=== PATIENT | female | born 1990 | race Caucasian/White ===

== ENCOUNTER 2016-08-31 23:00 | Emergency (ER) | payer SELFPAY ==
[2016-08-31 23:08] VITALS: PULSE 98; RESP 18; TEMP 97.1
[2016-08-31] MEDS ORDERED: SODIUM CHLORIDE 0.9% 1,000 ML IV STA (23:10)
--- NOTE | 2016-08-31 23:25 | ED ---
Dizziness HPI - General Chief Complaint: Syncope Stated Complaint: syncope Time Seen by Provider: 08/31/16 23:10 Source: patient, RN notes reviewed Mode of arrival: ambulatory Limitations: no limitations - History of Present Illness Initial Comments: Patient is a 25-year-old female with chief complaint of syncope while she was working out today. Patient reports that she had done cardio and then was working at a pressing weight machine when she started to feel slightly lightheaded. Patient reports that she put her head down for approximately a minute. Patient reports that she does have a history of diabetes but is not managing this with any medication. Patient reports that she has a history of anxiety. Patient has a history of syncope. She reports the last time she passed out was approximately month ago. She presents that she is currently on her menstrual cycle. She denies any abdominal pain, nausea or vomiting. She does have a headache at this time. - Related Data Previous Rx's Medication Instructions Recorded Ciprofloxacin HCl [Cipro] 500 mg PO Q12HR #10 tablet 09/01/16 Allergies Allergy/AdvReac Type Severity Reaction Status Date / Time No Known Allergies Allergy Verified 08/31/16 23:08 Review of Systems ROS Statement: Those systems with pertinent positive or pertinent negative responses have been documented in the HPI. ROS Other: All systems not noted in ROS Statement are negative. Past Medical History Past Medical History: Diabetes Mellitus, GERD/Reflux, Seizure Disorder History of Any Multi-Drug Resistant Organisms: None Reported Past Surgical History: No Surgical Hx Reported Past Psychological History: Anxiety Smoking Status: Former smoker Past Alcohol Use History: Occasional Past Drug Use History: None Reported General Exam - General Exam Comments Initial Comments: Well-appearing 25-year-old female. No acute distress. Limitations: no limitations General appearance: alert, in no apparent distress Head exam: Present: atraumatic, normocephalic, normal inspection Eye exam: Present: normal appearance, PERRL, EOMI. Absent: scleral icterus, conjunctival injection, periorbital swelling ENT exam: Present: normal exam, mucous membranes moist Neck exam: Present: normal inspection. Absent: tenderness, meningismus, lymphadenopathy Respiratory exam: Present: normal lung sounds bilaterally. Absent: respiratory distress, wheezes, rales, rhonchi, stridor Cardiovascular Exam: Present: regular rate, normal rhythm, normal heart sounds. Absent: systolic murmur, diastolic murmur, rubs, gallop, clicks GI/Abdominal exam: Present: soft, normal bowel sounds. Absent: distended, tenderness, guarding, rebound, rigid Extremities exam: Present: normal inspection, full ROM, normal capillary refill. Absent: tenderness, pedal edema, joint swelling, calf tenderness Back exam: Present: normal inspection Neurological exam: Present: alert, oriented X3, CN II-XII intact Psychiatric exam: Present: normal affect, normal mood Skin exam: Present: warm, dry, intact, normal color. Absent: rash Course Vital Signs 08/31/16 09/01/16 23:03 02:00 Temperature 97.1 F L Pulse Rate 98 98 Respiratory 18 18 Rate Blood Pressure 133/92 131/78 O2 Sat by Pulse 99 96 Oximetry Medical Decision Making - Medical Decision Making Patient is a 25-year-old female with chief complaint of syncope while she was working out today. Patient reports that she had done cardio and then was working at a pressing weight machine when she started to feel slightly lightheaded. Patient reports that she put her head down for approximately a minute. Patient reports that she does have a history of diabetes but is not managing this with any medication. Patient reports that she has a history of anxiety. Patient has a history of syncope. EKG ws reviewed to be normal. Lab work shows possible UTI with high rare bacteria, and positive nitrates. She denies any abdominal pain, vaginal discharge. Patient given Ciprofloxacin for UTI. Urine culture was obtained. Patient reports that she feels much better after IV fuids and toradol for her headache. Patient plans to follow up with PCP in regards to blood sugar and to start medication for diabetes. Patient understands treatment plan and will comply. - Lab Data Result diagrams: 08/31/16 23:40 08/31/16 23:40 Lab Results 08/31/16 08/31/16 08/31/16 Range/Units 23:40 23:40 23:40 WBC 13.1 H (3.8-10.6) k/uL RBC 5.33 (3.80-5.40) m/uL Hgb 14.3 (11.4-16.0) gm/dL Hct 42.4 (34.0-46.0) % MCV 79.5 L (80.0-100.0) fL MCH 26.8 (25.0-35.0) pg MCHC 33.7 (31.0-37.0) g/dL RDW 13.8 (11.5-15.5) % Plt Count 378 (150-450) k/uL Neutrophils % 71 % Lymphocytes % 20 % Monocytes % 5 % Eosinophils % 1 % Basophils % 1 % Neutrophils # 9.4 H (1.3-7.7) k/uL Lymphocytes # 2.7 (1.0-4.8) k/uL Monocytes # 0.6 (0-1.0) k/uL Eosinophils # 0.1 (0-0.7) k/uL Basophils # 0.1 (0-0.2) k/uL Sodium 140 (137-145) mmol/L Potassium 4.2 (3.5-5.1) mmol/L Chloride 101 (98-107) mmol/L Carbon Dioxide 24 (22-30) mmol/L Anion Gap 15 mmol/L BUN 9 (7-17) mg/dL Creatinine 0.50 L (0.52-1.04) mg/dL Est GFR (MDRD) Af Amer >60 (>60 ml/min/1.73 sqM) Est GFR (MDRD) Non-Af >60 (>60 ml/min/1.73 sqM) Glucose 332 H (74-99) mg/dL Calcium 10.0 (8.4-10.2) mg/dL Total Bilirubin 0.5 (0.2-1.3) mg/dL AST 24 (14-36) U/L ALT 41 (9-52) U/L Alkaline Phosphatase 79 (38-126) U/L Total Protein 8.3 H (6.3-8.2) g/dL Albumin 4.5 (3.5-5.0) g/dL Urine Color Light Yellow Urine Appearance Clear (Clear) Urine pH 6.0 (5.0-8.0) Ur Specific [place] 1.032 (1.001-1.035) Urine Protein 2+ H (Negative) Urine Glucose (UA) 4+ H (Negative) Urine Ketones Trace H (Negative) Urine Blood Moderate H (Negative) Urine Nitrate Positive H (Negative) Urine Bilirubin Negative (Negative) Urine Urobilinogen <2.0 (<2.0) mg/dL Ur Leukocyte Esterase Negative (Negative) Urine RBC 2 (0-5) /hpf Urine WBC 4 (0-5) /hpf Ur Squamous Epith Cells 2 (0-4) /hpf Urine Bacteria Rare H (None) /hpf Urine HCG, Qual (Not Detectd) 08/31/16 Range/Units 23:40 WBC (3.8-10.6) k/uL RBC (3.80-5.40) m/uL Hgb (11.4-16.0) gm/dL Hct (34.0-46.0) % MCV (80.0-100.0) fL MCH (25.0-35.0) pg MCHC (31.0-37.0) g/dL RDW (11.5-15.5) % Plt Count (150-450) k/uL Neutrophils % % Lymphocytes % % Monocytes % % Eosinophils % % Basophils % % Neutrophils # (1.3-7.7) k/uL Lymphocytes # (1.0-4.8) k/uL Monocytes # (0-1.0) k/uL Eosinophils # (0-0.7) k/uL Basophils # (0-0.2) k/uL Sodium (137-145) mmol/L Potassium (3.5-5.1) mmol/L Chloride (98-107) mmol/L Carbon Dioxide (22-30) mmol/L Anion Gap mmol/L BUN (7-17) mg/dL Creatinine (0.52-1.04) mg/dL Est GFR (MDRD) Af Amer (>60 ml/min/1.73 sqM) Est GFR (MDRD) Non-Af (>60 ml/min/1.73 sqM) Glucose (74-99) mg/dL Calcium (8.4-10.2) mg/dL Total Bilirubin (0.2-1.3) mg/dL AST (14-36) U/L ALT (9-52) U/L Alkaline Phosphatase (38-126) U/L Total Protein (6.3-8.2) g/dL Albumin (3.5-5.0) g/dL Urine Color Urine Appearance (Clear) Urine pH (5.0-8.0) Ur Specific [place] (1.001-1.035) Urine Protein (Negative) Urine Glucose (UA) (Negative) Urine Ketones (Negative) Urine Blood (Negative) Urine Nitrate (Negative) Urine Bilirubin (Negative) Urine Urobilinogen (<2.0) mg/dL Ur Leukocyte Esterase (Negative) Urine RBC (0-5) /hpf Urine WBC (0-5) /hpf Ur Squamous Epith Cells (0-4) /hpf Urine Bacteria (None) /hpf Urine HCG, Qual Not Detected (Not Detectd) 08/31/16 23:47 EKG shows normal sinus rhythm. Ventricular rate 100 bpm. [place] interval 132 ms. QRS duration 88 ms. No evidence of ST elevation or T-wave inversion. Disposition Clinical Impression: Syncope, Urinary tract infection, Hyperglycemia Disposition: HOME SELF-CARE Condition: Good Instructions: Diabetic Hyperglycemia (ED), Urinary Tract Infection in Women (ED ), Syncope (ED) Additional Instructions: Patient advised to follow-up with primary care provider in regards to a blood sugar. Return to the emergency department if any alarming signs or symptoms occur. Completely anabiotic prescription. Patient advised to rest, remain hydrated. Prescriptions: Ciprofloxacin HCl [Cipro] 500 mg PO Q12HR #10 tablet Referrals: Dayanara Urias MD [STAFF PHYSICIAN] - 1-2 days Time of Disposition: 01:03
[2016-08-31 23:47] LABS: Basophils # (A) 0.1 k/uL (0-0.2); Basophils % (A) 1 %; CH 27.5; CHCM 34.7; Eosinophils # (A) 0.1 k/uL (0-0.7); Eosinophils % (A) 1 %; HCT 42.4 % (34.0-46.0); HDW 3.19; HGB 14.3 gm/dL (11.4-16.0); Luc # (Auto) 0.26; Luc % (Auto) 2; Lymphocytes # (A) 2.7 k/uL (1.0-4.8); Lymphocytes % (A) 20 %; MCH 26.8 pg (25.0-35.0); MCHC 33.7 g/dL (31.0-37.0); MCV 79.5 fL (80.0-100.0); Monocytes # (A) 0.6 k/uL (0-1.0); Monocytes % (A) 5 %; Neutrophils # (A) 9.4 k/uL (1.3-7.7); Neutrophils % (A) 71 %; RBC 5.33 m/uL (3.80-5.40); RDW 13.8 % (11.5-15.5); WBC 13.1 k/uL (3.8-10.6); WBC (Perox) 12.54
[2016-08-31 23:51] LABS: Appearance,Urine Clear (Clear); Bacteria,Urine Rare /hpf; Bilirubin,Urine Negative (Negative); Glucose,Urine (UA) 4+ (Negative); Ketones,Urine Trace (Negative); Leukocyte Esterase,Urine Negative (Negative); Nitrite,Urine Positive (Negative); Particle Count 25728; Protein,Urine 2+ (Negative); RBC,Urine 2 /hpf (0-5); Specific Gravity,Urine 1.032 (1.001-1.035); Squamous Epithelial Cell,Urine 2 /hpf (0-4); UA Billing (MACRO vs. MICRO) MICRO; Urobilinogen,Urine <2.0 mg/dL (<2.0); WBC,Urine 4 /hpf (0-5)
[2016-09-01 00:04] LABS: ALT 41 U/L (9-52); AST 24 U/L (14-36); Alkaline Phosphatase 79 U/L (38-126); Anion Gap 15 mmol/L; Blood Urea Nitrogen 9 mg/dL (7-17); Carbon Dioxide 24 mmol/L (22-30); Chloride 101 mmol/L (98-107); Glucose 332 mg/dL (74-99); Non-African American GFR(MDRD) >60 (>60 ml/min/1.73 sqM); Potassium 4.2 mmol/L (3.5-5.1); Sodium 140 mmol/L (137-145); Total Bilirubin 0.5 mg/dL (0.2-1.3); Total Protein 8.3 g/dL (6.3-8.2)
[2016-09-01] MEDS ORDERED: KETOROLAC 30 MG/ML 1 ML VIAL IVP STA (00:37)
[2016-09-01] MEDS ORDERED: SODIUM CHLORIDE 0.9% 500 ML IV ONE (00:38)
[2016-09-01 02:02] VITALS: BP 131/78
== END 2016-09-01 02:00 | disposition home or self-care (01) ==
LOC: EC 23:00
DX: N39.0 Urinary tract infection, site not specified (principal); E11.65 Type 2 diabetes mellitus with hyperglycemia; R55 Syncope and collapse; Z87.891 Personal history of nicotine dependence
CPT/HCPCS: 36415; 93005; 80053; 85025; 81001; 81025; 87086; 87077; 87186; 99284; 96374; 96361; 96360; J1885

== ENCOUNTER 2017-03-15 22:45 | Emergency (ER) | payer OTHER ==
[2017-03-15] MEDS ORDERED: ACETAMINOPHEN TAB 500 MG TAB PO STA (23:29)
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
--- NOTE | 2017-03-16 00:49 | US ---
EXAM: US After First Trimester, Transabdominal CLINICAL HISTORY: Reason: Pain TECHNIQUE: Real-time transabdominal obstetrical ultrasound of the maternal pelvis and a second or third trimester with image documentation. COMPARISON: None FINDINGS: Single live intrauterine gestation with cephalic presentation. The placenta is anterior without evidence of previa. The cervix is long and closed, measuring 3.7 cm. Single placental lopez measuring 2 cm. Amniotic fluid index measures 11.5 cm BPD 3.4 cm 16 weeks 4 days HC 12.8 cm 16 weeks 3 days AC 11.2 cm 17 weeks 0 days FL 2.1 cm 16 weeks 2 days By this ultrasound, estimated gestational age is 16 weeks 5 days, corresponding to a sonographic MARKELL of 08/25/2014 which is concordant with prior dating. Estimated weight is 163.87 g +/-24.58 g which is at the 30.1 percentile. HC/AC ratio is 1.14 (normal range for this fetus is 1.07-1.30). FHR is 149 bpm. Detailed evaluation of the anatomy was not performed. Ovaries were not evaluated. IMPRESSION: Single intrauterine with heart rate of 149 bpm. Average ultrasound age of 16 weeks 5 days. No acute abnormality.
[2017-03-16 01:06] LABS: Appearance,Urine Cloudy (Clear); Bacteria,Urine Moderate /hpf; Bilirubin,Urine Negative (Negative); Glucose,Urine (UA) Negative (Negative); Ketones,Urine Trace (Negative); Leukocyte Esterase,Urine Small (Negative); Nitrite,Urine Positive (Negative); Particle Count 77832; Protein,Urine Trace (Negative); Specific Gravity,Urine 1.022 (1.001-1.035); Squamous Epithelial Cell,Urine 4 /hpf (0-4); UA Billing (MACRO vs. MICRO) MICRO; Urobilinogen,Urine <2.0 mg/dL (<2.0); WBC,Urine 5 /hpf (0-5)
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
[2017-03-16 02:48] VITALS: BP 107/56; PULSE 76; RESP 18; TEMP 98.1
== END 2017-03-16 02:48 | disposition home or self-care (01) ==
LOC: EC 22:45
DX: O9A.212 Injury, poisoning and certain other consequences of external causes complicating pregnancy, second trimester (principal); S16.1XXA Strain of muscle, fascia and tendon at neck level, initial encounter; S39.012A Strain of muscle, fascia and tendon of lower back, initial encounter; O24.112 Pre-existing type 2 diabetes mellitus, in pregnancy, second trimester; Z87.891 Personal history of nicotine dependence; Z3A.17 17 weeks gestation of pregnancy; Z79.4 Long term (current) use of insulin; Z79.899 Other long term (current) drug therapy; V43.52XA Car driver injured in collision with other type car in traffic accident, initial encounter; Y92.410 Unspecified street and highway as the place of occurrence of the external cause
CPT/HCPCS: 72040; 72100; 76805; 81001; 99285

== ENCOUNTER 2019-11-22 20:32 | Outpatient (CLI) | payer OTHER ==
[2019-11-22] MEDS ORDERED: LABETALOL 5 MG/ML VIAL MDV IVP PRN ×2 (21:03)
[2019-11-22] MEDS ORDERED: hydrALAZINE HCL 20 MG/ML 1 ML VIAL IVP PRN (21:03)
[2019-11-22 21:13] LABS: Glucose,Whole Blood 126 mg/dL (75-99)
[2019-11-22] MEDS: LACTATED RINGERS 1,000 ML IV SCH ×2 (21:17→22:57)
[2019-11-22 21:29] LABS: Basophils % (A) 0 %; Eosinophils # (A) 0.1 k/uL (0-0.7); Eosinophils % (A) 1 %; HGB 10.9 gm/dL (11.4-16.0); Hypochromasia Slight; Lymphocytes # (A) 2.6 k/uL (1.0-4.8); Lymphocytes % (A) 26 %; MCH 24.2 pg (25.0-35.0); MCHC 32.9 g/dL (31.0-37.0); MCV 73.5 fL (80.0-100.0); Mean Platelet Volume 7.7; Microcytosis Slight; Monocytes # (A) 0.5 k/uL (0-1.0); Monocytes % (A) 5 %; Neutrophils # (A) 6.5 k/uL (1.3-7.7); Neutrophils % (A) 66 %; Platelet Count 259 k/uL (150-450); Poikilocytosis Slight; RBC 4.49 m/uL (3.80-5.40); RDW 15.7 % (11.5-15.5); WBC 9.8 k/uL (3.8-10.6)
[2019-11-22 21:45] LABS: ALT 18 U/L (4-34); AST 31 U/L (14-36); African American GFR (CKD) >90 (>60 ml/min/1.73 sqM); Blood Urea Nitrogen 14 mg/dL (7-17); LDH 557 U/L (313-618); Magnesium 1.7 mg/dL (1.6-2.3); Non-African American GFR(CKD) >90 (>60 ml/min/1.73 sqM); Uric Acid 7.2 mg/dL (3.7-7.4)
[2019-11-22] MEDS: LABETALOL 5 MG/ML VIAL MDV IVP PRN ×3 (22:00→22:40)
[2019-11-22 22:19] LABS: Appearance,Urine Cloudy (Clear); Bacteria,Urine Rare /hpf; Bilirubin,Urine Negative (Negative); Blood,Urine Small (Negative); Color,Urine Yellow; Glucose,Urine (UA) 1+ (Negative); Granular Casts,Urine 2 /lpf (0); Hyaline Casts,Urine 30 /lpf (0-2); Ketones,Urine Negative (Negative); Leukocyte Esterase,Urine Negative (Negative); Mucus,Urine Moderate /hpf; Nitrite,Urine Negative (Negative); PH, Urine 6.5 (5.0-8.0); Protein,Urine 4+ (Negative); RBC,Urine 4 /hpf (0-5); Squamous Epithelial Cell,Urine 11 /hpf (0-4); Urobilinogen,Urine <2.0 mg/dL (<2.0); WBC,Urine 14 /hpf (0-5)
[2019-11-22 22:25] LABS: INR 0.9 (<1.2); Prothrombin Time 9.3 sec (9.0-12.0)
[2019-11-22 22:31] VITALS: RESP 18; TEMP 97.4
[2019-11-22] MEDS ORDERED: CALCIUM GLUCONATE 1 GM/10 ML VIAL IV PRN (22:51)
[2019-11-22] MEDS ORDERED: MAGNESIUM SULFATE-WATER PMX 4 GM in WATER FOR INJECTION 1 100ML.BAG IVPB STA (22:51)
--- NOTE | 2019-11-22 22:58 | XR ---
EXAMINATION TYPE: XR chest 1V portable DATE OF EXAM: 11/22/2019 COMPARISON: NONE HISTORY: Chest pain TECHNIQUE: FINDINGS: Heart and mediastinum are normal. Lungs are clear of consolidation. There is mild coarsenin g of interstitial markings. There are chest leads. There is no pleural effusion. Bony thorax is intac t. IMPRESSION: Slight increased markings. Normal heart.
[2019-11-22] MEDS ORDERED: MAGNESIUM SULFATE-WATER PMX 20 GM in WATER FOR INJECTION 1 500ML.BAG IV SCH (23:00)
[2019-11-22] MEDS ORDERED: BETAMET ACET-BETAMETH SOD PHOS 6 MG/ML MDV IM SCH (23:00)
--- NOTE | 2019-11-22 23:01 | P.HPOB ---
History of Present Illness H&P Date: 11/22/19 Chief Complaint: 26+ weeks, elevated blood pressure, shortness of breath The patient is a 28-year-old 2 para 0101 admitted at 26+ weeks by good dating parameters. She has had all of her care through the [facility] system at the [facility]. She has a known history of pre-gestational type 2 insulin-dependent diabetes for which her blood sugars have been normal by her report. On labor and delivery today her blood sugar is 126. She presented to triage with blood pressures ranging from the 180s into the 200s over 80s to 100s. As result, she had the intravenous labetalol protocol begun which has leveled her pressures to now 150s over 80s to 90s. She does also complain of shortness of breath and a chest x-ray is pending at this time. She denies any symptoms of fever, cough, or any other potential signs of coronavirus. heart tones are nonreactive but are not nonreassuring. She has had one random short-term deceleration. Pulse ox on room air is 98-99%. Laboratory workup to this point has been essentially negative with a hemoglobin and hematocrit of 10.9 and 33.0 respectively. Platelet count is normal at 259,000. Uric acid is significantly elevated at 7.2. LDH is within normal limits at 557. She does have significant proteinuria at 4+. Liver functions are within normal limits. She has mild lower extremity pedal and pretibial edema with normal reflexes. This is potentially a different father of the baby from her previous at which time she had significant hypertension at 36 weeks. Obstetrical history: 2 para 0101 with a previous 36 week delivery secondary to significant hypertensive issues, possible preeclampsia. Her , by the patient's report, has been unremarkable to this point and blood sugars have been within normal limits despite pre-gestational type 2 insulin-dependent diabetes. I have no labs available at this time. Gynecologic history: Unremarkable with no history of any infections to include STDs by the patient's report. Review of Systems Review of systems is confined to history of present illness. Past Medical History Past Medical History: Diabetes Mellitus, GERD/Reflux, Seizure Disorder History of Any Multi-Drug Resistant Organisms: None Reported Past Surgical History: No Surgical Hx Reported Smoking Status: Never smoker Medications and Allergies Home Medications Medication Instructions Recorded Confirmed Type INSULIN ASPART (NovoLOG) [NovoLOG] 16 unit SQ W/BRKFST 03/15/17 11/22/19 History INSULIN ASPART (NovoLOG) [NovoLOG] 20 unit SQ W/SUPPER 03/15/17 11/22/19 History Insulin NPH Human Isophane 46 unit SQ AC-BRKFST 03/15/17 11/22/19 History [NovoLIN N] Insulin NPH Human Isophane 52 unit SQ HS 03/15/17 11/22/19 History [NovoLIN N] Nxz-Tszs-Rjcvo Acid 1 cap PO DAILY 03/15/17 11/22/19 History [-U Capsule (formulary)] Allergies Allergy/AdvReac Type Severity Reaction Status Date / Time No Known Allergies Allergy Verified 11/22/19 20:49 Exam Vital Signs Temp Pulse Resp BP Pulse Ox 11/22/19 21:20 60 18 201/94 11/22/19 21:10 59 L 18 148/79 11/22/19 21:03 97.4 F L 55 L 18 187/98 100 11/22/19 21:01 60 18 173/94 11/22/19 20:49 60 18 176/98 Intake and Output 11/22/19 11/22/19 11/22/19 06:59 14:59 22:59 Other: Weight 75.75 kg In general, this is a well-developed, mildly obese white female in no acute distress though she does appear to be laboring to breathe to some extent. Her heart has a regular rhythm and rate without murmur. Her lungs are clear to auscultation bilaterally in all pickard. Her abdomen is gravid, consistent with gestational age, nondistended, has normal active bowel sounds, is soft, nontender, and without any palpable masses aside from the uterine fundus. Her extremities are without any cyanosis or clubbing though there is trace to 1+ bilateral edema to above the ankle. Digital cervical examination is deferred. Results Result Diagrams: 11/22/19 21:18 11/22/19 21:18 Abnormal Lab Results - Last 24 Hours (Table) 11/22/19 11/22/19 11/22/19 Range/Units 21:11 21:18 21:20 Hgb 10.9 L (11.4-16.0) gm/dL Hct 33.0 L (34.0-46.0) % MCV 73.5 L (80.0-100.0) fL MCH 24.2 L (25.0-35.0) pg RDW 15.7 H (11.5-15.5) % POC Glucose (mg/dL) 126 H (75-99) mg/dL Urine Appearance Cloudy H (Clear) Ur Specific [place] 1.050 H (1.001-1.035) Urine Protein 4+ H (Negative) Urine Glucose (UA) 1+ H (Negative) Urine Blood Small H (Negative) Urine WBC 14 H (0-5) /hpf Ur Squamous Epith Cells 11 H (0-4) /hpf Urine Bacteria Rare H (None) /hpf Hyaline Casts 30 H (0-2) /lpf Urine Mucus Moderate H (None) /hpf Assessment and Plan (1) Hypertensive crisis Current Visit: Yes Status: Acute Code(s): I16.9 - HYPERTENSIVE CRISIS, UNSPECIFIED SNOMED Code(s): 215491941 (2) 26 weeks gestation of Current Visit: Yes Status: Acute Code(s): Z3A.26 - 26 WEEKS GESTATION OF SNOMED Code(s): 77985036 (3) Insulin dependent diabetes mellitus Current Visit: Yes Status: Acute Code(s): WIN1154 - SNOMED Code(s): 36891572 (4) Shortness of breath Current Visit: Yes Status: Acute Code(s): R06.02 - SHORTNESS OF BREATH SNOMED Code(s): 825196089 Plan: As the patient has had all of her previous care at the [facility] and she is far less than 35 weeks of gestation, I have arranged for transfer of her care to [facility]. Her blood pressure joanna ears to be under control at this time following intravenous labetalol. She will be started on magnesium sulfate, 4 g IV bolus followed by 2 g per hour for both seizure prophylaxis and neural protection. She additionally will have her first dose of betamethasone 12.5 mg IM which will likely repeat repeated in 24 hours. IV fluids will continue to run at 100 mL per hour and a Alfonso catheter will be placed for management of fluids. [facility] Arrangements will be made for transfer as soon as possible.
[2019-11-22] MEDS ORDERED: FAMOTIDINE 20 MG/2 ML VIAL IV SCH (23:30)
[2019-11-22] MEDS ORDERED: CITRIC ACID-SODIUM CITRATE 15 ML CUP PO ONE (23:31)
[2019-11-23 00:57] VITALS: BP 143/76; PULSE 75
== END 2019-11-22 23:51 | disposition short-term general hospital (02) ==
LOC: FBPOP 20:32
PROVIDERS: ATTEND Obstetrics & Gynecology
DX: O16.2 Unspecified maternal hypertension, second trimester (principal); Z3A.26 26 weeks gestation of pregnancy; I16.9 Hypertensive crisis, unspecified; R06.02 Shortness of breath; O24.112 Pre-existing type 2 diabetes mellitus, in pregnancy, second trimester; E11.9 Type 2 diabetes mellitus without complications
CPT/HCPCS: 96376; 96361; 96365; 96375; 96372; 82570; 84156; 82565; 83615; 83735; 84450; 84460; 84520; 84550; 85025; 85384; 85610; 85730; 81001; 71045; G0463; J0360; J3475 ×2; J0702; 99215

== ENCOUNTER 2021-03-30 21:29 | Emergency (ER) | payer OTHER ==
[2021-03-30 22:04] VITALS: TEMP 98.5
[2021-03-30] MEDS ORDERED: SODIUM CHLORIDE 0.9% 1,000 ML IV ONE (22:14)
--- NOTE | 2021-03-30 22:15 | ED ---
Female Urogenital HPI - General Chief complaint: Vaginal Bleeding Stated complaint: Cramping(6 weeks ) Time Seen by Provider: 03/30/21 22:14 Source: patient, RN notes reviewed, old records reviewed Mode of arrival: ambulatory Limitations: no limitations - History of Present Illness Initial comments: This is a 30-year-old female to the ER for evaluation today. Patient resents today for vaginal bleeding in . Patient has known of about 6-7 weeks. She has had prior positive test. Patient is also having vaginal cramping with bleeding. She is a . Mild nausea no vomiting no other complaints MD Complaint: vaginal bleeding, other (In ) -: hour(s) Location: suprapubic Radiation: suprapubic Severity: moderate Severity scale (1-10): 5 Quality: cramping Consistency: intermittent Improves with: none Worsens with: none Patient : Yes Associated Symptoms: vaginal bleeding, abdominal pain, nausea/vomiting - Related Data Sexually active: No Home Medications Medication Instructions Recorded Confirmed INSULIN ASPART (NovoLOG) [NovoLOG] 16 unit SQ W/BRKFST 03/15/17 11/22/19 INSULIN ASPART (NovoLOG) [NovoLOG] 20 unit SQ W/SUPPER 03/15/17 11/22/19 Insulin NPH Human Isophane 46 unit SQ AC-BRKFST 03/15/17 11/22/19 [NovoLIN N] Insulin NPH Human Isophane 52 unit SQ HS 03/15/17 11/22/19 [NovoLIN N] Fbz-Eams-Gwttf Acid 1 cap PO DAILY 03/15/17 11/22/19 [-U Capsule (formulary)] Allergies Allergy/AdvReac Type Severity Reaction Status Date / Time No Known Allergies Allergy Verified 11/22/19 20:49 Review of Systems ROS Statement: Those systems with pertinent positive or pertinent negative responses have been documented in the HPI. ROS Other: All systems not noted in ROS Statement are negative. Past Medical History Past Medical History: Diabetes Mellitus, GERD/Reflux, Seizure Disorder History of Any Multi-Drug Resistant Organisms: None Reported Past Surgical History: No Surgical Hx Reported Past Psychological History: Anxiety Smoking Status: Never smoker Past Alcohol Use History: Occasional Past Drug Use History: None Reported General Exam Limitations: no limitations General appearance: alert, in no apparent distress, anxious Head exam: Present: atraumatic, normocephalic, normal inspection Eye exam: Present: normal appearance, PERRL, EOMI. Absent: scleral icterus, conjunctival injection, periorbital swelling ENT exam: Present: normal exam, mucous membranes moist Neck exam: Present: normal inspection. Absent: tenderness, meningismus, lymphadenopathy Respiratory exam: Present: normal lung sounds bilaterally. Absent: respiratory distress, wheezes, rales, rhonchi, stridor Cardiovascular Exam: Present: normal rhythm, tachycardia, normal heart sounds. Absent: systolic murmur, diastolic murmur, rubs, gallop, clicks GI/Abdominal exam: Present: soft, normal bowel sounds. Absent: distended, tenderness, guarding, rebound, rigid Extremities exam: Present: normal inspection, full ROM, normal capillary refill. Absent: tenderness, pedal edema, joint swelling, calf tenderness Back exam: Present: normal inspection Neurological exam: Present: alert, oriented X3, CN II-XII intact Psychiatric exam: Present: normal affect, normal mood Skin exam: Present: warm, dry, intact, normal color. Absent: rash Course Vital Signs 03/30/21 22:01 Temperature 98.5 F Pulse Rate 118 H Respiratory 19 Rate Blood Pressure 133/85 O2 Sat by Pulse 97 Oximetry - Reevaluation(s) Reevaluation #1: 03/30/21 23:08 Medical records reviewed Reevaluation #2: 03/30/21 23:08 Patient is no significant bleeding here in the ER, spotting Reevaluation #3: 03/31/21 01:43 Spoke patient length who is refusing admission, will give continued resuscitation of fluid bolus and an IV antibiotics and oral antibiotics for home Reevaluation #4: 03/31/21 01:43 Patient encouraged to see diabetic counseling and she is not on diabetic treatment currently Reevaluation #5: 03/31/21 01:43 Patient informed results questions answered patient understands need for follow- up beta hCG Medical Decision Making - Medical Decision Making 26 female to the ER for evaluation of vaginal bleeding of significant urinary tract infection and elevated blood sugar will treat both, patient encouraged increased water intake and follow-up for repeat beta hCG in 2 days - Lab Data Result diagrams: 03/30/21 22:37 03/30/21 22:37 Lab Results 03/30/21 03/30/21 03/30/21 Range/Units 22:37 22:37 22:37 WBC 11.9 H (3.8-10.6) k/uL RBC 5.22 (3.80-5.40) m/uL Hgb 12.9 (11.4-16.0) gm/dL Hct 39.4 (34.0-46.0) % MCV 75.5 L (80.0-100.0) fL MCH 24.7 L (25.0-35.0) pg MCHC 32.7 (31.0-37.0) g/dL RDW 15.6 H (11.5-15.5) % Plt Count 420 (150-450) k/uL MPV 8.0 Neutrophils % 61 % Lymphocytes % 30 % Monocytes % 5 % Eosinophils % 2 % Basophils % 0 % Neutrophils # 7.3 (1.3-7.7) k/uL Lymphocytes # 3.5 (1.0-4.8) k/uL Monocytes # 0.6 (0-1.0) k/uL Eosinophils # 0.3 (0-0.7) k/uL Basophils # 0.1 (0-0.2) k/uL Microcytosis Slight PT 10.1 (9.0-12.0) sec INR 0.9 (<1.2) APTT 18.0 L (22.0-30.0) sec Sodium (137-145) mmol/L Potassium (3.5-5.1) mmol/L Chloride (98-107) mmol/L Carbon Dioxide (22-30) mmol/L Anion Gap mmol/L BUN (7-17) mg/dL Creatinine (0.52-1.04) mg/dL Est GFR (CKD-EPI)AfAm (>60 ml/min/1.73 sqM) Est GFR (CKD-EPI)NonAf (>60 ml/min/1.73 sqM) Glucose (74-99) mg/dL Calcium (8.4-10.2) mg/dL Total Bilirubin (0.2-1.3) mg/dL AST (14-36) U/L ALT (4-34) U/L Alkaline Phosphatase (38-126) U/L Total Protein (6.3-8.2) g/dL Albumin (3.5-5.0) g/dL HCG, Quant mIU/mL Urine Color Yellow Urine Appearance Cloudy H (Clear) Urine pH 6.0 (5.0-8.0) Ur Specific [place] 1.045 H (1.001-1.035) Urine Protein 2+ H (Negative) Urine Glucose (UA) 4+ H (Negative) Urine Ketones Negative (Negative) Urine Blood Large H (Negative) Urine Nitrite Positive H (Negative) Urine Bilirubin Negative (Negative) Urine Urobilinogen <2.0 (<2.0) mg/dL Ur Leukocyte Esterase Moderate H (Negative) Urine RBC >182 H (0-5) /hpf Urine WBC >182 H (0-5) /hpf Ur Squamous Epith Cells 2 (0-4) /hpf Urine Bacteria Few H (None) /hpf Hyaline Casts 6 H (0-2) /lpf Blood Type Blood Type Recheck Bld Type Recheck Status 03/30/21 03/30/21 Range/Units 22:37 22:37 WBC (3.8-10.6) k/uL RBC (3.80-5.40) m/uL Hgb (11.4-16.0) gm/dL Hct (34.0-46.0) % MCV (80.0-100.0) fL MCH (25.0-35.0) pg MCHC (31.0-37.0) g/dL RDW (11.5-15.5) % Plt Count (150-450) k/uL MPV Neutrophils % % Lymphocytes % % Monocytes % % Eosinophils % % Basophils % % Neutrophils # (1.3-7.7) k/uL Lymphocytes # (1.0-4.8) k/uL Monocytes # (0-1.0) k/uL Eosinophils # (0-0.7) k/uL Basophils # (0-0.2) k/uL Microcytosis PT (9.0-12.0) sec INR (<1.2) APTT (22.0-30.0) sec Sodium 135 L (137-145) mmol/L Potassium 4.6 (3.5-5.1) mmol/L Chloride 105 (98-107) mmol/L Carbon Dioxide 17 L (22-30) mmol/L Anion Gap 13 mmol/L BUN 10 (7-17) mg/dL Creatinine 0.36 L (0.52-1.04) mg/dL Est GFR (CKD-EPI)AfAm >90 (>60 ml/min/1.73 sqM) Est GFR (CKD-EPI)NonAf >90 (>60 ml/min/1.73 sqM) Glucose 312 H (74-99) mg/dL Calcium 8.9 (8.4-10.2) mg/dL Total Bilirubin 0.6 (0.2-1.3) mg/dL AST 48 H (14-36) U/L ALT 30 (4-34) U/L Alkaline Phosphatase 66 (38-126) U/L Total Protein 7.4 (6.3-8.2) g/dL Albumin 3.8 (3.5-5.0) g/dL HCG, Quant 564.1 mIU/mL Urine Color Urine Appearance (Clear) Urine pH (5.0-8.0) Ur Specific [place] (1.001-1.035) Urine Protein (Negative) Urine Glucose (UA) (Negative) Urine Ketones (Negative) Urine Blood (Negative) Urine Nitrite (Negative) Urine Bilirubin (Negative) Urine Urobilinogen (<2.0) mg/dL Ur Leukocyte Esterase (Negative) Urine RBC (0-5) /hpf Urine WBC (0-5) /hpf Ur Squamous Epith Cells (0-4) /hpf Urine Bacteria (None) /hpf Hyaline Casts (0-2) /lpf Blood Type A Positive Blood Type Recheck No Previous Record Bld Type Recheck Status CABO Indicated - Radiology Data Radiology results: report reviewed (Ultrasound shows nothing, no significant findings, no IUP), image reviewed Disposition Clinical Impression: Insulin dependent diabetes mellitus, Vaginal bleeding, Threatened , Hyperglycemia, UTI (urinary tract infection) Disposition: HOME SELF-CARE Condition: Fair Instructions (If sedation given, give patient instructions): Urinary Tract Infection in (ED), Diabetic Hyperglycemia (ED), Threatened Miscarriage (ED) Is patient prescribed a controlled substance at d/c from ED?: No Referrals: Dario Melton MD [Primary Care Provider] - 1-2 days
[2021-03-30 22:51] LABS: Basophils # (A) 0.1 k/uL (0-0.2); Basophils % (A) 0 %; Eosinophils # (A) 0.3 k/uL (0-0.7); Eosinophils % (A) 2 %; HCT 39.4 % (34.0-46.0); HGB 12.9 gm/dL (11.4-16.0); Lymphocytes # (A) 3.5 k/uL (1.0-4.8); Lymphocytes % (A) 30 %; MCH 24.7 pg (25.0-35.0); MCHC 32.7 g/dL (31.0-37.0); MCV 75.5 fL (80.0-100.0); Microcytosis Slight; Monocytes # (A) 0.6 k/uL (0-1.0); Monocytes % (A) 5 %; Neutrophils # (A) 7.3 k/uL (1.3-7.7); Neutrophils % (A) 61 %; Platelet Count 420 k/uL (150-450); RBC 5.22 m/uL (3.80-5.40); RDW 15.6 % (11.5-15.5); WBC 11.9 k/uL (3.8-10.6)
[2021-03-30 23:08] LABS: ALT 30 U/L (4-34); AST 48 U/L (14-36); African American GFR (CKD) >90 (>60 ml/min/1.73 sqM); Albumin 3.8 g/dL (3.5-5.0); Alkaline Phosphatase 66 U/L (38-126); Anion Gap 13 mmol/L; Blood Urea Nitrogen 10 mg/dL (7-17); Calcium 8.9 mg/dL (8.4-10.2); Carbon Dioxide 17 mmol/L (22-30); Chloride 105 mmol/L (98-107); Glucose 312 mg/dL (74-99); Non-African American GFR(CKD) >90 (>60 ml/min/1.73 sqM); Potassium 4.6 mmol/L (3.5-5.1); Sodium 135 mmol/L (137-145); Total Bilirubin 0.6 mg/dL (0.2-1.3); Total Protein 7.4 g/dL (6.3-8.2)
[2021-03-30 23:11] LABS: Appearance,Urine Cloudy (Clear); Bacteria,Urine Few /hpf; Bilirubin,Urine Negative (Negative); Blood,Urine Large (Negative); Color,Urine Yellow; Glucose,Urine (UA) 4+ (Negative); Hyaline Casts,Urine 6 /lpf (0-2); Ketones,Urine Negative (Negative); Leukocyte Esterase,Urine Moderate (Negative); Nitrite,Urine Positive (Negative); Protein,Urine 2+ (Negative); RBC,Urine >182 /hpf (0-5); Specific Gravity,Urine 1.045 (1.001-1.035); Squamous Epithelial Cell,Urine 2 /hpf (0-4); Urobilinogen,Urine <2.0 mg/dL (<2.0); WBC,Urine >182 /hpf (0-5)
[2021-03-30 23:13] LABS: INR 0.9 (<1.2); Prothrombin Time 10.1 sec (9.0-12.0)
--- NOTE | 2021-03-30 23:21 | US ---
EXAMINATION TYPE: Transabdominal DATE OF EXAM: 03/30/2021 11:07 PM COMPARISON: NONE CLINICAL HISTORY: pain. Spotting, pain EXAM PERFORMED: Transvaginal (TV) and Transabdominal (TA) EXAM MEASUREMENTS: GESTATIONAL AGE / DATING Physician Established: Not yet established Dates by LMP: (5 weeks/6 days) EDC: 11/24/2021 Dates by First Scan: No previous this is first scan Dates by Current Scan for: No IUP seen at this time MATERNAL ANATOMY Uterus: 7.8 x 4.0 x 4.4 cm Right Ovary: 2.2 x 2.0 x 1.7 cm Left Ovary: 2.4 x 1.4 x 1.9 cm Post CDS / Adnexa: wnl Presence of free fluid: no Presence of corpus luteal cyst: no Presence of subchorionic bleed: no GESTATION / SURVEY IUP: No IUP seen at this time Date of LMP: 02/17/2021 Beta HcG (if available): Not available at this time No IUP visualized on this exam. IMPRESSION: Empty uterus. No adnexal mass or free fluid.
[2021-03-30 23:25] LABS: HCG,Quantitative Serum 564.1 mIU/mL
[2021-03-31] MEDS ORDERED: SODIUM CHLORIDE 0.9% 1,000 ML IV STA (00:32)
[2021-03-31] MEDS ORDERED: SODIUM CHLORIDE 0.9% 500 ML 500 ML IV STA (00:32)
[2021-03-31] MEDS ORDERED: CEPHALEXIN 500MG STARTER PACK 4 CAP BTL PO STA (01:44)
[2021-03-31 02:16] VITALS: BP 126/84; PULSE 98; RESP 20
== END 2021-03-31 02:18 | disposition home or self-care (01) ==
LOC: EC 21:29
DX: O20.0 Threatened abortion (principal); O24.111 Pre-existing type 2 diabetes mellitus, in pregnancy, first trimester; O23.41 Unspecified infection of urinary tract in pregnancy, first trimester; O99.611 Diseases of the digestive system complicating pregnancy, first trimester; E11.65 Type 2 diabetes mellitus with hyperglycemia; K21.9 Gastro-esophageal reflux disease without esophagitis; Z3A.01 Less than 8 weeks gestation of pregnancy; Z79.4 Long term (current) use of insulin
CPT/HCPCS: 99285; 96365; 36415; 86900; 86901; 80053; 85025; 85610; 85730; 81001; 84702; 87086; 76801; 76817; J0696; 87077; 87186

== ENCOUNTER 2021-09-08 22:15 | Emergency (ER) | payer OTHER ==
[2021-09-08 23:15] VITALS: BP 149/85; PULSE 106; RESP 19; TEMP 98
--- NOTE | 2021-09-08 23:58 | US ---
EXAMINATION TYPE: Transabdominal DATE OF EXAM: 09/08/2021 11:37 PM COMPARISON: NONE CLINICAL HISTORY: 7 weeks , vaginal bleeding. Bleeding. Hx miscarriage. Generalized crampin g. EXAM PERFORMED: Transabdominal (TA) EXAM MEASUREMENTS: GESTATIONAL AGE / DATING Physician Established: Not yet established Dates by LMP: (6 weeks/6 days) EDC: 05/01/2022 Dates by First Scan: No previous this is first scan Dates by Current Scan for: No IUP seen at this time MATERNAL ANATOMY Uterus: 8.3 x 4.1 x 3.9 cm Right Ovary: 3.3 x 1.7 x 2.2 cm Left Ovary: 2.6 x 1.6 x 1.7 cm Post CDS / Adnexa: no free fluid Presence of free fluid: no Presence of corpus luteal cyst: right ovarian lesion = 1.5 x 1.3 x 1.3 cm GESTATION / SURVEY IUP: No IUP seen at this time Date of LMP: 07/22/2021, [id number] Beta HcG (if available): Not available at this time No GS, YS or CRL visualized at time of scan. Endometrium appears thickened = 1.5 cm. IMPRESSION: The uterus is empty. No adnexal mass. No free fluid.
--- NOTE | 2021-09-09 00:53 | ED ---
Female Urogenital HPI - General Chief complaint: Vaginal Bleeding Stated complaint: Vaginal bleeding-7 weeks preg. Time Seen by Provider: 09/09/21 00:48 Source: patient, RN notes reviewed, old records reviewed Mode of arrival: ambulatory Limitations: no limitations - History of Present Illness Initial comments: This is a 30-year-old female to the emergency department today. Patient Dese for evaluation of vaginal bleeding of . I'll abdominal pain and cramping no significant pain. No medical history takes no medications. Patient patient is significantly early on in this . Patient believes that she is about 7 weeks MD Complaint: vaginal bleeding, pelvic pain -: minutes(s) Location: suprapubic Severity: mild Severity scale (1-10): 2 Quality: cramping Consistency: intermittent Improves with: none Worsens with: none Patient : Yes Associated Symptoms: vaginal bleeding - Related Data Sexually active: No Home Medications Medication Instructions Recorded Confirmed INSULIN ASPART (NovoLOG) [NovoLOG] 16 unit SQ W/BRKFST 03/15/17 11/22/19 INSULIN ASPART (NovoLOG) [NovoLOG] 20 unit SQ W/SUPPER 03/15/17 11/22/19 Insulin NPH Human Isophane 46 unit SQ AC-BRKFST 03/15/17 11/22/19 [NovoLIN N] Insulin NPH Human Isophane 52 unit SQ HS 03/15/17 11/22/19 [NovoLIN N] Xba-Xhwp-[place] Acid 1 cap PO DAILY 03/15/17 11/22/19 [-U Capsule (formulary)] Previous Rx's Medication Instructions Recorded Cephalexin [Keflex] 500 mg PO Q6HR #40 cap 03/31/21 Allergies Allergy/AdvReac Type Severity Reaction Status Date / Time No Known Allergies Allergy Verified 09/08/21 23:15 Review of Systems ROS Statement: Those systems with pertinent positive or pertinent negative responses have been documented in the HPI. ROS Other: All systems not noted in ROS Statement are negative. Past Medical History Past Medical History: Diabetes Mellitus, GERD/Reflux, Seizure Disorder Additional Past Medical History / Comment(s): htn during History of Any Multi-Drug Resistant Organisms: None Reported Past Surgical History: No Surgical Hx Reported Past Psychological History: Anxiety Smoking Status: Never smoker Past Alcohol Use History: Occasional Past Drug Use History: None Reported General Exam General appearance: alert, in no apparent distress Head exam: Present: atraumatic, normocephalic, normal inspection Eye exam: Present: normal appearance, PERRL, EOMI. Absent: scleral icterus, conjunctival injection, periorbital swelling ENT exam: Present: normal exam, mucous membranes moist Neck exam: Present: normal inspection. Absent: tenderness, meningismus, lymphadenopathy Respiratory exam: Present: normal lung sounds bilaterally. Absent: respiratory distress, wheezes, rales, rhonchi, stridor Cardiovascular Exam: Present: regular rate, normal rhythm, normal heart sounds. Absent: systolic murmur, diastolic murmur, rubs, gallop, clicks GI/Abdominal exam: Present: soft, normal bowel sounds. Absent: distended, tenderness, guarding, rebound, rigid Extremities exam: Present: normal inspection, full ROM, normal capillary refill. Absent: tenderness, pedal edema, joint swelling, calf tenderness Back exam: Present: normal inspection Neurological exam: Present: alert, oriented X3, CN II-XII intact Psychiatric exam: Present: normal affect, normal mood Skin exam: Present: warm, dry, intact, normal color. Absent: rash Course Vital Signs 09/08/21 23:12 Temperature 98 F Pulse Rate 106 H Respiratory 19 Rate Blood Pressure 149/85 O2 Sat by Pulse 100 Oximetry - Reevaluation(s) Reevaluation #1: 09/09/2021 Medical record is reviewed Patient symptoms are improved here in the emergency department Patient informed of results and questions are answered Medical Decision Making - Medical Decision Making 30 female to the ER with vaginal bleeding. Vaginal bleeding of , threatened miscarriage. Patient will be discharged home - Lab Data Lab Results 09/09/21 09/09/21 Range/Units 00:52 00:52 HCG, Quant 8224.2 mIU/mL Blood Type A Positive Blood Type Recheck A Pos Bld Type Recheck Status No Antibody Screen NEGATIVE Spec Expiration Date 09/12/2021 - 2351 - Radiology Data Radiology results: report reviewed (Ultrasound shows no IUP), image reviewed Disposition Clinical Impression: Threatened , Miscarriage Disposition: HOME SELF-CARE Condition: Good Instructions (If sedation given, give patient instructions): Miscarriage (ED) Is patient prescribed a controlled substance at d/c from ED?: No Referrals: Dario Melton MD [Primary Care Provider] - 1-2 days
== END 2021-09-09 01:14 | disposition home or self-care (01) ==
LOC: EC 22:15
DX: O20.0 Threatened abortion (principal); O24.111 Pre-existing type 2 diabetes mellitus, in pregnancy, first trimester; Z79.4 Long term (current) use of insulin; Z3A.01 Less than 8 weeks gestation of pregnancy; Z67.10 Type A blood, Rh positive
CPT/HCPCS: 36415; 76801; 84702; 86850; 86900; 86901; 99284

== ENCOUNTER → 2021-12-14 | Outpatient (CLI) | payer OTHER ==
[2021-12-14 22:50] LABS: HCT 37.4 % (37.2-46.3); HGB 10.9 g/dL (12.0-15.0); MCH 20.8 pg (27.0-32.0); MCHC 29.1 g/dL (32.0-37.0); MCV 71.4 fL (80.0-97.0); Mean Platelet Volume 10.1 fL (9.5-12.2); NRBC Per 100 WBC 0 /100 WBCS (0.0-0.0); Platelet Count 489 X 10*3/uL (140-440); RBC 5.24 X 10*6/uL (4.10-5.20); RDW 15.6 % (11.5-14.5); WBC 8.07 X 10*3/uL (4.50-10.00)
[2021-12-14 23:20] LABS: Hepatitis C IgG Antibody Nonreactive (Nonreactive)
[2021-12-14 23:25] LABS: ALT 34 U/L (8-44); AST 21 U/L (13-35); African American GFR (CKD) 150.4 (60.0-200.0); Albumin 4.1 g/dL (3.8-4.9); Albumin/Globulin Ratio 1.16 (1.60-3.17); Alkaline Phosphatase 110 U/L (41-126); BUN/Creat Ratio 16.09 Ratio (12.00-20.00); Blood Urea Nitrogen 8.2 mg/dL (9.0-27.0); C Reactive Protein <0.30 mg/dL (0.00-0.80); Carbon Dioxide 22.2 mmol/L (20.0-27.5); Chloride 100 mmol/L (96-109); Globulin 3.5 g/dL (1.6-3.3); Glucose 296 mg/dL (70-110); LDL Cholesterol,Calculated 64.4 mg/dL (0.0-131.0); Non-African American GFR(CKD) 129.8 (60.0-200.0); Potassium 4.2 mmol/L (3.5-5.5); Rheumatoid Factor, Qnt 22 IU/mL (0-15); Sodium 136 mmol/L (135-145); Total Protein 7.7 g/dL (6.2-8.2); Uric Acid 4.2 mg/dL (2.9-7.7)
[2021-12-14 23:34] LABS: Basophils # (A) 0.03 X 10*3/uL (0.00-0.10); Basophils % (A) 0.4 %; Eosinophils # (A) 0.14 X 10*3/uL (0.04-0.35); Eosinophils % (A) 1.7 %; Immature Grans, Automated 0.2 %; Lymphocytes # (A) 2.38 X 10*3/uL (0.90-5.00); Lymphocytes % (A) 29.5 %; Monocytes # (A) 0.53 X 10*3/uL (0.20-1.00); Monocytes % (A) 6.6 %; Neutrophils # (A) 4.97 X 10*3/uL (1.80-7.70); Neutrophils % (A) 61.6 %
[2021-12-14 23:35] LABS: Microcytosis (M) 2+
[2021-12-15 05:15] LABS: Erythrocyte Sedimentation Rate 38 mm/Hr (0-20)
== END | disposition home or self-care (01) ==
LOC: LABWHC1 14:58
PROVIDERS: ATTEND Family Medicine
DX: Z00.00 Encounter for general adult medical examination without abnormal findings (principal); Z11.59 Encounter for screening for other viral diseases; E13.42 Other specified diabetes mellitus with diabetic polyneuropathy; M19.90 Unspecified osteoarthritis, unspecified site
CPT/HCPCS: 36415; 80053; 80061; 82043; 82570; 83036; 84550; 84681; 85025; 85652; 86038; 86140; 86431; 86803

== ENCOUNTER → 2023-04-15 | Outpatient (CLI) | payer OTHER ==
--- NOTE | 2023-04-15 13:20 | XR ---
EXAMINATION TYPE: XR chest 2V DATE OF EXAM: 04/15/2023 1:03 PM COMPARISON: Chest radiographs from 11/22/2019 TECHNIQUE: XR chest 2V Frontal and lateral views of the chest. CLINICAL INDICATION:Female, 32 years old with history of J18.9 PNEUMONIA,; FINDINGS: Lungs/Pleura: There is no evidence of pleural effusion, focal consolidation, or pneumothorax. Pulmonary vascularity: Unremarkable. Heart/mediastinum: Cardiomediastinal silhouette is unremarkable. Musculoskeletal: No acute osseous pathology. IMPRESSION: No acute cardiopulmonary disease/process.
[2023-04-15 20:25] LABS: ALT 24 U/L (8-44); AST 20 U/L (13-35); Albumin 4.5 d/dL (3.8-4.9); Albumin/Globulin Ratio 1.25 Ratio (1.60-3.17); Alkaline Phosphatase 93 U/L (41-126); Blood Urea Nitrogen 7.1 mg/dL (9.0-27.0); Calcium 9.1 mg/dL (8.7-10.3); Carbon Dioxide 24.8 mmol/L (21.6-31.8); Chloride 103 mmol/L (96-109); Chol/HDL Ratio 5.62 Ratio; Globulin 3.6 d/dL (1.6-3.3); Glucose 113 mg/dL (70-110); LDL Cholesterol,Calculated 93.1 mg/dL (0.0-131.0); Potassium 4.8 mmol/L (3.5-5.5); Sodium 139 mmol/L (135-145); Total Bilirubin <0.2 mg/dL (0.3-1.2); Total Protein 8.1 d/dL (6.2-8.2)
[2023-04-15 21:04] LABS: Basophils # (A) 0.06 X 10*3/uL (0.00-0.10); Basophils % (A) 0.8 %; Eosinophils # (A) 1.24 X 10*3/uL (0.04-0.35); Eosinophils % (A) 15.7 %; HCT 41.8 % (37.2-46.3); HGB 12.7 d/dL (12.0-15.0); Lymphocytes # (A) 2.87 X 10*3/uL (0.90-5.00); Lymphocytes % (A) 36.3 %; MCHC 30.4 d/dL (32.0-37.0); MCV 75.7 FL (80.0-97.0); Mean Platelet Volume 10.1 FL (9.5-12.2); Monocytes # (A) 0.59 X 10*3/uL (0.20-1.00); Monocytes % (A) 7.5 %; NRBC Per 100 WBC 0 X 10*3/uL (0.00-0.01); Neutrophils # (A) 3.13 X 10*3/uL (1.80-7.70); Neutrophils % (A) 39.6 %; Platelet Count 492 X 10*3/uL (140-440); RBC 5.52 X 10*6/uL (4.10-5.20)
== END | disposition home or self-care (01) ==
LOC: RADXRMAIN 12:40
PROVIDERS: ATTEND Family Medicine
DX: J18.9 Pneumonia, unspecified organism (principal); E11.65 Type 2 diabetes mellitus with hyperglycemia
CPT/HCPCS: 71046; 80053; 80061; 83036; 84443; 85025

== ENCOUNTER → 2023-10-07 | Outpatient (CLI) | payer OTHER ==
[2023-10-07 21:27] LABS: ALT 31 U/L (8-44); AST 22 U/L (13-35); Albumin 4.1 g/dL (3.8-4.9); Albumin/Globulin Ratio 1.05 Ratio (1.60-3.17); Alkaline Phosphatase 88 U/L (41-126); Blood Urea Nitrogen 8.4 mg/dL (9.0-27.0); Calcium 9.1 mg/dL (8.7-10.3); Carbon Dioxide 19.8 mmol/L (21.6-31.8); Chloride 102 mmol/L (96-109); Chol/HDL Ratio 7.38 Ratio; Globulin 3.9 g/dL (1.6-3.3); Glucose 168 mg/dL (70-110); Potassium 4.3 mmol/L (3.5-5.5); Sodium 137 mmol/L (135-145); Total Bilirubin <0.2 mg/dL (0.3-1.2)
== END | disposition home or self-care (01) ==
LOC: LABWHC1 13:52
PROVIDERS: ATTEND Internal Medicine
DX: E11.65 Type 2 diabetes mellitus with hyperglycemia (principal)
CPT/HCPCS: 36415; 80053; 80061; 82043; 82570; 83036; 83721